=== PATIENT | male | born 1965 | race Two or more races ===

== ENCOUNTER 2018-01-20 09:29 | Outpatient (CLI) | payer OTHER ==
[~2018-01-20 09:29] MED LIST: DICLOFENAC POTA50 MG PO; HYZAAR 100/25 T1 TAB; NORFLEX100MG PO
== END 2018-01-20 09:41 | disposition home or self-care (01) ==
LOC: TOM 09:29
DX: K57.30 Diverticulosis of large intestine without perforation or abscess without bleeding (principal); R10.32 Left lower quadrant pain

== ENCOUNTER 2018-01-20 10:12 | Outpatient (CLI) | payer OTHER | END 2018-01-20 10:19 | disposition home or self-care (01) | LOC: LAB 10:12 | DX: K57.30 Diverticulosis of large intestine without perforation or abscess without bleeding (principal); Z51.81 Encounter for therapeutic drug level monitoring ==

== ENCOUNTER → 2020-04-23 | Outpatient (CLI) | payer OTHER ==
[~2020-04-23] MED LIST changes: +CYCLOBENZAPRINE10 MG PO; +DICLOFENAC SOD100 MG PO
== END | disposition home or self-care (01) ==
LOC: TOM 12:12
PROVIDERS: ATTEND Internal Medicine
DX: R10.84 Generalized abdominal pain (principal); R10.30 Lower abdominal pain, unspecified; R10.2 Pelvic and perineal pain

== ENCOUNTER 2020-10-28 07:19 | Outpatient (CLI) | payer OTHER | END 2020-10-28 07:23 | disposition home or self-care (01) | LOC: NUCLEAR 07:19 | PROVIDERS: ATTEND Internal Medicine Cardiovascular Disease | DX: I50.1 Left ventricular failure, unspecified (principal) | CPT/HCPCS: 78452; 93017; A9500 ==